=== PATIENT | female | born 1990 | race Caucasian/White ===

== ENCOUNTER 2016-10-26 16:33 | Emergency (ER) | payer OTHER ==
[~2016-10-26] VITALS: Ht 157.4 cm; Wt 41.7 kg
[~2016-10-26 16:33] MED LIST: BACTRIM DS 8001 TA1 PO; DARVOCET N 1001 TAB PO; KEFLEX500 MG PO; MOTRIN400 MG PO; MOTRIN800 MG PO; NKHM; PEPCID20 MG PO; PRENTAL 1 PLUS1 TAB PO; SEPTRA DS 800 M1 TAB PO; VICODIN 5/500 505 MG PO; XANAX1 MG PO
[2016-10-26 17:06] VITALS: BP 116/78
[2016-10-26 17:39] LABS: BILIRUBIN 1+ (NEGATIVE); BLOOD 3+ (NEGATIVE); CLARITY SL CLOUDY (CLEAR); COLOR YELLOW (YELLOW); GLUCOSE NEGATIVE (NEGATIVE); KETONE NEGATIVE (NEGATIVE); LEUKO ESTERASE NEGATIVE (NEGATIVE); NITRITE NEGATIVE (NEGATIVE); PH 6.5 (5.0-9.0)
[2016-10-26 17:50] LABS: BACTERIA TRACE; EPITHELIAL CELLS 0-2; RBC 31-40 rbc/hpf (0-2)
[2016-10-26 19:41] LABS: HEMATOCRIT 41.3 % (37.0-47.0); MEAN CELL VOLUME 89.2 fl (81.0-99.0); MEAN CORPUSCULAR HGB 30.2 pg (27.0-31.0); MEAN CORPUSCULAR HGB CONC 33.9 g/dl (33.0-37.0); MEAN PLATELET VOLUME 11.8 fl (9.6-12.3); PLATELET COUNT AUTOMATED 237 10*3/uL (130-400); RED BLOOD COUNT 4.63 10*6/uL (4.10-5.10); RED CELL DISTRI WIDTH 12.9 % (0-14.5); WHITE BLOOD COUNT 30.3 10*3/uL (4.8-10.8)
[2016-10-26 19:56] LABS: ALBUMIN 3.4 gm/dl (3.1-4.5); ALKALINE PHOSPHATASE 115 U/L (45-117); BUN 13 mg/dl (7-24); CHLORIDE 101 mmol/L (98-107); CREATININE 0.77 mg/dL (0.55-1.02); POTASSIUM 3.5 mmol/L (3.5-5.1); SGOT/AST 13 IU/L (3-35); SGPT/ALT 13 U/L (12-78); SODIUM 137 mmol/L (136-145)
[2016-10-26 19:58] LABS: BETA-HCG, QUANT < 1.0 mIU/mL (1-3)
[2016-10-26 19:59] LABS: TOTAL CELLS COUNTED 100 #CELLS
[2016-10-26 20:00] LABS: PLATELET SUFFICIENCY NORMAL (NORMAL)
[2016-10-26] MEDS ORDERED: DOXYCYCLINE100 M3 PO (21:55)
[2016-10-29 07:54] LABS: GONOCOCCUS BY NAA Positive (Negative)
== END 2016-10-26 23:06 | disposition home or self-care (01) ==
LOC: ED 16:33
PROVIDERS: Emergency Medicine; Student in an Organized Health Care Education/Training Program
DX: N73.0 Acute parametritis and pelvic cellulitis (principal); F17.200 Nicotine dependence, unspecified, uncomplicated

== ENCOUNTER 2016-12-30 23:47 | Emergency (ER) | payer OTHER ==
[~2016-12-30] VITALS: Ht 157.4 cm; Wt 43.1 kg
[~2016-12-30 23:47] MED LIST changes: +DOXYCYCLINE100 M3 PO
[2016-12-30 23:55] VITALS: BP 109/74
== END 2016-12-31 00:41 | disposition left against medical advice (07) ==
LOC: ED 23:47
DX: S01.91XA Laceration without foreign body of unspecified part of head, initial encounter (principal); F17.200 Nicotine dependence, unspecified, uncomplicated; W10.9XXA Fall (on) (from) unspecified stairs and steps, initial encounter; Y93.89 Activity, other specified; Y92.008 Other place in unspecified non-institutional (private) residence as the place of occurrence of the external cause; Y99.8 Other external cause status

== ENCOUNTER 2017-01-28 11:53 | Emergency (ER) | payer OTHER ==
[~2017-01-28] VITALS: Ht 157.4 cm; Wt 42.2 kg
[2017-01-28 11:58] VITALS: BP 100/60
[2017-01-28 12:50] LABS: BILIRUBIN NEGATIVE (NEGATIVE); BLOOD 2+ (NEGATIVE); CLARITY CLOUDY (CLEAR); COLOR YELLOW (YELLOW); GLUCOSE NEGATIVE (NEGATIVE); KETONE NEGATIVE (NEGATIVE); LEUKO ESTERASE 1+ (NEGATIVE); NITRITE NEGATIVE (NEGATIVE); SPECIFIC GRAVITY >= 1.030 (1.005-1.030); UROBILINOGEN 0.2 E.U./dl (0.2-1.0)
[2017-01-28 13:05] LABS: MUCOUS TRACE; RBC 16-20 rbc/hpf (0-2); WBC TNTC wbc/hpf (0-5)
[2017-01-28 13:08] LABS: URINE AMPHETAMINES < 1000 (1000ng/ml); URINE BARBITURATES < 200 (200ng/ml); URINE BENZODIAZEPINES > 200 (200ng/ml); URINE CANNABINOIDS (THC) > 50 (50ng/ml); URINE COCAINE > 300 (300ng/ml); URINE METHADONE < 300 (300ng/ml); URINE OPIATES < 300 (300ng/ml)
[2017-01-28 13:13] LABS: URINE PHENCYCLIDINE < 25 (25ng/ml)
[2017-01-28] MEDS ORDERED: SEPTDS PO (13:37)
[2017-01-28] MEDS ORDERED: PYRIDIUM200 M1 PO (13:37)
== END 2017-01-28 14:38 | disposition home or self-care (01) ==
LOC: ED 11:53
PROVIDERS: Emergency Medicine
DX: N34.2 Other urethritis (principal); A64 Unspecified sexually transmitted disease; A59.01 Trichomonal vulvovaginitis; F19.10 Other psychoactive substance abuse, uncomplicated; F17.210 Nicotine dependence, cigarettes, uncomplicated

== ENCOUNTER 2017-01-31 00:45 | Emergency (ER) | payer OTHER ==
[~2017-01-31] VITALS: Ht 160 cm; Wt 45.4 kg
[~2017-01-31 00:45] MED LIST changes: +PYRIDIUM200 M1 PO; +SEPTDS PO
[2017-01-31 01:42] LABS: BASO # 0.1 10*3/uL (0.0-0.1); BASO % 0.7 % (0.0-1.0); EOS # 0.6 10*3/uL (0.0-0.4); HEMATOCRIT 39.9 % (37.0-47.0); HEMOGLOBIN 13.3 g/dl (12.0-16.0); LYMPH # 2.9 10*3/uL (1.3-4.4); LYMPH % 29.6 % (27.0-41.0); MEAN CELL VOLUME 90.7 fl (81.0-99.0); MEAN CORPUSCULAR HGB 30.2 pg (27.0-31.0); MEAN CORPUSCULAR HGB CONC 33.3 g/dl (33.0-37.0); MEAN PLATELET VOLUME 11.8 fl (9.6-12.3); MONO # 0.5 10*3/uL (0.1-1.0); MONO % 4.6 % (3.0-9.0); NEUT # 5.7 10*3/uL (2.3-7.9); PLATELET COUNT AUTOMATED 211 10*3/uL (130-400); RED CELL DISTRI WIDTH 13.5 % (0-14.5); WHITE BLOOD COUNT 9.7 10*3/uL (4.8-10.8)
[2017-01-31 01:58] LABS: ACETAMINOPHEN (TYLENOL) < 2.0 ug/ml (10-30); ALBUMIN 4.1 gm/dl (3.1-4.5); ALKALINE PHOSPHATASE 81 U/L (45-117); BUN 14 mg/dl (7-24); CHLORIDE 113 mmol/L (98-107); CREATININE 0.94 mg/dL (0.55-1.02); POTASSIUM 3.4 mmol/L (3.5-5.1); SGOT/AST 19 IU/L (3-35); SGPT/ALT 20 U/L (12-78); SODIUM 147 mmol/L (136-145); TOTAL PROTEIN 7.6 gm/dL (6.4-8.2)
[2017-01-31 02:03] LABS: BETA-HCG, QUANT < 1.0 mIU/mL (1-3)
[2017-01-31 05:38] VITALS: BP 94/54
[2017-01-31 06:23] LABS: BILIRUBIN NEGATIVE (NEGATIVE); BLOOD NEGATIVE (NEGATIVE); CLARITY CLEAR (CLEAR); COLOR YELLOW (YELLOW); GLUCOSE NEGATIVE (NEGATIVE); KETONE NEGATIVE (NEGATIVE); LEUKO ESTERASE TRACE (NEGATIVE); NITRITE NEGATIVE (NEGATIVE); PH 5.5 (5.0-9.0); SPECIFIC GRAVITY 1.025 (1.005-1.030); UROBILINOGEN 0.2 E.U./dl (0.2-1.0)
[2017-01-31 06:34] LABS: URINE AMPHETAMINES < 1000 (1000ng/ml); URINE BARBITURATES < 200 (200ng/ml); URINE BENZODIAZEPINES > 200 (200ng/ml); URINE CANNABINOIDS (THC) > 50 (50ng/ml); URINE COCAINE > 300 (300ng/ml); URINE METHADONE < 300 (300ng/ml); URINE OPIATES < 300 (300ng/ml)
[2017-01-31 06:36] LABS: URINE PHENCYCLIDINE < 25 (25ng/ml)
[2017-01-31 06:51] LABS: BACTERIA 1+; MUCOUS 2+; WBC 16-20 wbc/hpf (0-5)
== END 2017-01-31 06:56 | disposition home or self-care (01) ==
LOC: ED 00:45
PROVIDERS: Student in an Organized Health Care Education/Training Program
DX: F10.129 Alcohol abuse with intoxication, unspecified (principal); F19.10 Other psychoactive substance abuse, uncomplicated; Z88.8 Allergy status to other drugs, medicaments and biological substances

== ENCOUNTER 2017-05-30 12:10 | Emergency (ER) | payer OTHER ==
[~2017-05-30] VITALS: Ht 157.4 cm; Wt 41.7 kg
[2017-05-30 12:16] VITALS: BP 95/89
[2017-05-30 12:49] LABS: BASO % 0.6 % (0.0-1.0); EOS # 0.3 10*3/uL (0.0-0.4); EOS % 5.6 % (1.0-4.0); HEMATOCRIT 37.3 % (37.0-47.0); HEMOGLOBIN 12.1 g/dl (12.0-16.0); LYMPH # 1.8 10*3/uL (1.3-4.4); LYMPH % 37.8 % (27.0-41.0); MEAN CELL VOLUME 95.2 fl (81.0-99.0); MEAN CORPUSCULAR HGB 30.9 pg (27.0-31.0); MEAN CORPUSCULAR HGB CONC 32.4 g/dl (33.0-37.0); MEAN PLATELET VOLUME 11.2 fl (9.6-12.3); MONO # 0.4 10*3/uL (0.1-1.0); MONO % 8.8 % (3.0-9.0); NEUT # 2.2 10*3/uL (2.3-7.9); PLATELET COUNT AUTOMATED 194 10*3/uL (130-400); RED BLOOD COUNT 3.92 10*6/uL (4.10-5.10); RED CELL DISTRI WIDTH 13.5 % (0-14.5); WHITE BLOOD COUNT 4.7 10*3/uL (4.8-10.8)
[2017-05-30 13:10] LABS: ALBUMIN 3.7 gm/dl (3.1-4.5); ALKALINE PHOSPHATASE 75 U/L (45-117); BUN 11 mg/dl (7-24); CHLORIDE 104 mmol/L (98-107); SGOT/AST 21 IU/L (3-35); SGPT/ALT 18 U/L (12-78); SODIUM 141 mmol/L (136-145); TOTAL PROTEIN 7.2 gm/dL (6.4-8.2)
[2017-05-30 13:12] LABS: ETHYL ALCOHOL < 3.0 mg/dl (<3)
[2017-05-30 13:18] LABS: THYROID STIM HORMONE (HS) 0.172 uIU/ml (0.358-4.75)
[2017-05-30 13:23] LABS: BILIRUBIN NEGATIVE (NEGATIVE); BLOOD NEGATIVE (NEGATIVE); CLARITY CLEAR (CLEAR); COLOR YELLOW (YELLOW); GLUCOSE NEGATIVE (NEGATIVE); KETONE NEGATIVE (NEGATIVE); LEUKO ESTERASE NEGATIVE (NEGATIVE); NITRITE POSITIVE (NEGATIVE); SPECIFIC GRAVITY >= 1.030 (1.005-1.030); UROBILINOGEN 0.2 E.U./dl (0.2-1.0)
[2017-05-30 13:32] LABS: URINE AMPHETAMINES < 1000 (1000ng/ml); URINE BARBITURATES > 200 (200ng/ml); URINE BENZODIAZEPINES > 200 (200ng/ml); URINE CANNABINOIDS (THC) > 50 (50ng/ml); URINE COCAINE > 300 (300ng/ml); URINE METHADONE < 300 (300ng/ml); URINE OPIATES < 300 (300ng/ml)
[2017-05-30 13:33] LABS: URINE PHENCYCLIDINE < 25 (25ng/ml)
[2017-05-30 13:42] LABS: BACTERIA 4+; EPITHELIAL CELLS 0-2; WBC 21-30 wbc/hpf (0-5)
== END 2017-05-30 14:23 | disposition admitted as inpatient to this hospital (09) ==
LOC: ED 12:10 → EDHOLD 13:06 → 5E 13:55 → EDHOLD 13:55 → 5E 13:55 → ED 14:23
PROVIDERS: Emergency Medicine; Family Medicine
DX: F11.10 Opioid abuse, uncomplicated (principal); F19.10 Other psychoactive substance abuse, uncomplicated; F17.200 Nicotine dependence, unspecified, uncomplicated

== ENCOUNTER 2017-06-05 13:06 | Emergency (ER) | payer OTHER ==
[~2017-06-05] VITALS: Ht 157.4 cm; Wt 45.4 kg
[2017-06-05 13:13] VITALS: BP 112/78
[2017-06-05 13:58] LABS: BILIRUBIN NEGATIVE (NEGATIVE); BLOOD NEGATIVE (NEGATIVE); CLARITY CLOUDY (CLEAR); COLOR YELLOW (YELLOW); GLUCOSE NEGATIVE (NEGATIVE); KETONE NEGATIVE (NEGATIVE); LEUKO ESTERASE TRACE (NEGATIVE); NITRITE POSITIVE (NEGATIVE); UROBILINOGEN 0.2 E.U./dl (0.2-1.0)
[2017-06-05 14:08] LABS: BACTERIA 4+; WBC 41-50 wbc/hpf (0-5)
[2017-06-05] MEDS ORDERED: MACROBID100 M1 PO (14:22)
[2017-06-05] MEDS ORDERED: DIFLUCAN150 MG PO (14:22)
== END 2017-06-05 14:27 | disposition home or self-care (01) ==
LOC: ED 13:06
PROVIDERS: Nurse Practitioner Family
DX: N39.0 Urinary tract infection, site not specified (principal); R30.0 Dysuria

== ENCOUNTER → 2017-10-19 | Outpatient (CLI) | payer OTHER ==
[~2017-10-19] MED LIST changes: +DIFLUCAN150 MG PO; +MACROBID100 M1 PO
== END | disposition home or self-care (01) ==
LOC: US 15:00
DX: Z34.81 Encounter for supervision of other normal pregnancy, first trimester (principal); Z3A.11 11 weeks gestation of pregnancy

== ENCOUNTER 2018-09-01 15:55 | Emergency (ER) | payer OTHER ==
[~2018-09-01] VITALS: Ht 157.4 cm; Wt 44.5 kg
[2018-09-01 15:57] VITALS: BP 141/69
[2018-09-01 16:20] LABS: BILIRUBIN NEGATIVE (NEGATIVE); BLOOD NEGATIVE (NEGATIVE); CLARITY SL CLOUDY (CLEAR); COLOR YELLOW (YELLOW); GLUCOSE NEGATIVE (NEGATIVE); KETONE 2+ (NEGATIVE); LEUKO ESTERASE 1+ (NEGATIVE); NITRITE POSITIVE (NEGATIVE); SPECIFIC GRAVITY >= 1.030 (1.005-1.030); UROBILINOGEN 0.2 E.U./dl (0.2-1.0)
[2018-09-01 16:36] LABS: WBC TNTC wbc/hpf (0-5)
[2018-09-01 16:37] LABS: BACTERIA 4+; MUCOUS 3+
[2018-09-01] MEDS ORDERED: KEFLEX500 M1 PO (16:40)
[2018-09-01] MEDS ORDERED: Motrin,Rufen800 MG PO (16:40)
== END 2018-09-01 17:05 | disposition home or self-care (01) ==
LOC: ED 15:55
PROVIDERS: Physician Assistant
DX: N39.0 Urinary tract infection, site not specified (principal); L02.411 Cutaneous abscess of right axilla; F17.200 Nicotine dependence, unspecified, uncomplicated; Z91.048 Other nonmedicinal substance allergy status

== ENCOUNTER 2018-09-03 18:43 | Emergency (ER) | payer OTHER ==
[~2018-09-03] VITALS: Ht 157.4 cm; Wt 43.1 kg
[~2018-09-03 18:43] MED LIST changes: +KEFLEX500 M1 PO; +Motrin,Rufen800 MG PO
[2018-09-03 18:44] VITALS: BP 113/76
[2018-09-03] MEDS ORDERED: SEPTDS PO (19:08)
[2018-09-03] MEDS ORDERED: PYRIDIUM100 MG PO (19:08)
[2018-09-03 19:10] LABS: BILIRUBIN 2+ (NEGATIVE); BLOOD 2+ (NEGATIVE); CLARITY SL CLOUDY (CLEAR); COLOR YELLOW (YELLOW); GLUCOSE NEGATIVE (NEGATIVE); KETONE 1+ (NEGATIVE); LEUKO ESTERASE 2+ (NEGATIVE); NITRITE NEGATIVE (NEGATIVE); SPECIFIC GRAVITY >= 1.030 (1.005-1.030); UROBILINOGEN 0.2 E.U./dl (0.2-1.0)
[2018-09-03 19:19] LABS: WBC TNTC wbc/hpf (0-5)
[2018-09-03 19:20] LABS: BACTERIA 2+; RBC 21-30 rbc/hpf (0-2)
== END 2018-09-03 19:24 | disposition home or self-care (01) ==
LOC: ED 18:43
PROVIDERS: Nurse Practitioner Family
DX: N39.0 Urinary tract infection, site not specified (principal); L02.411 Cutaneous abscess of right axilla; Z91.048 Other nonmedicinal substance allergy status; Z79.899 Other long term (current) drug therapy; Z79.2 Long term (current) use of antibiotics

== ENCOUNTER 2018-10-15 19:08 | Emergency (ER) | payer OTHER ==
[~2018-10-15] VITALS: Ht 157.4 cm; Wt 44.5 kg
[~2018-10-15 19:08] MED LIST changes: +PYRIDIUM100 MG PO
[2018-10-15 19:11] VITALS: BP 159/85
[2018-10-15] MEDS ORDERED: ZYRTEC-D TABLE1 EACH PO (20:13)
[2018-10-15] MEDS ORDERED: AMOXICILLIN500 M2 PO (20:13)
== END 2018-10-15 20:55 | disposition home or self-care (01) ==
LOC: ED 19:08
DX: J01.90 Acute sinusitis, unspecified (principal); J20.9 Acute bronchitis, unspecified; Z91.048 Other nonmedicinal substance allergy status; Z79.899 Other long term (current) drug therapy; Z79.2 Long term (current) use of antibiotics

== ENCOUNTER 2018-12-02 18:38 | Emergency (ER) | payer OTHER ==
[~2018-12-02] VITALS: Ht 157.4 cm; Wt 45.4 kg
[~2018-12-02 18:38] MED LIST changes: +AMOXICILLIN500 M2 PO; +ZYRTEC-D TABLE1 EACH PO
[2018-12-02 18:40] VITALS: BP 104/65
[2018-12-02 19:03] LABS: BILIRUBIN NEGATIVE (NEGATIVE); BLOOD NEGATIVE (NEGATIVE); CLARITY CLEAR (CLEAR); COLOR YELLOW (YELLOW); GLUCOSE NEGATIVE (NEGATIVE); KETONE NEGATIVE (NEGATIVE); LEUKO ESTERASE 1+ (NEGATIVE); NITRITE NEGATIVE (NEGATIVE); SPECIFIC GRAVITY 1.025 (1.005-1.030); UROBILINOGEN 0.2 E.U./dl (0.2-1.0)
[2018-12-02 19:08] LABS: BACTERIA TRACE; WBC 51-100 wbc/hpf (0-5)
[2018-12-02] MEDS ORDERED: CEPHALEXIN500 M1 PO (19:38)
== END 2018-12-02 19:33 | disposition home or self-care (01) ==
LOC: ED 18:38
PROVIDERS: Nurse Practitioner Family
DX: N39.0 Urinary tract infection, site not specified (principal); J02.0 Streptococcal pharyngitis; R59.0 Localized enlarged lymph nodes; Z91.048 Other nonmedicinal substance allergy status; Z79.899 Other long term (current) drug therapy; Z79.2 Long term (current) use of antibiotics

== ENCOUNTER 2019-05-26 09:19 | Emergency (ER) | payer OTHER ==
[~2019-05-26] VITALS: Ht 157.4 cm; Wt 45.4 kg
[~2019-05-26 09:19] MED LIST changes: +CEPHALEXIN500 M1 PO
[2019-05-26 09:26] VITALS: BP 126/85
== END 2019-05-26 09:41 | disposition left against medical advice (07) ==
LOC: ED 09:19
DX: T40.601A Poisoning by unspecified narcotics, accidental (unintentional), initial encounter (principal); R40.20 Unspecified coma; R06.81 Apnea, not elsewhere classified; R23.0 Cyanosis; Z91.048 Other nonmedicinal substance allergy status; Z79.899 Other long term (current) drug therapy; Z79.2 Long term (current) use of antibiotics; Z53.29 Procedure and treatment not carried out because of patient's decision for other reasons; Y92.481 Parking lot as the place of occurrence of the external cause

== ENCOUNTER 2019-06-09 02:55 | Emergency (ER) | payer OTHER ==
[~2019-06-09] VITALS: Ht 162.5 cm; Wt 49.9 kg
[2019-06-09 02:56] VITALS: BP 107/61
== END 2019-06-09 04:19 | disposition home or self-care (01) ==
LOC: ED 02:55
DX: S84.92XA Injury of unspecified nerve at lower leg level, left leg, initial encounter (principal); F11.90 Opioid use, unspecified, uncomplicated; F17.200 Nicotine dependence, unspecified, uncomplicated; Z91.048 Other nonmedicinal substance allergy status; Z79.899 Other long term (current) drug therapy; Z79.2 Long term (current) use of antibiotics; W49.09XA Other specified item causing external constriction, initial encounter; Y93.89 Activity, other specified; Y92.098 Other place in other non-institutional residence as the place of occurrence of the external cause; Y99.8 Other external cause status

== ENCOUNTER 2019-09-10 14:40 | Emergency (ER) | payer OTHER ==
[~2019-09-10] VITALS: Ht 157.4 cm; Wt 46.3 kg
[2019-09-10 14:49] VITALS: BP 138/49
== END 2019-09-10 15:40 | disposition left against medical advice (07) ==
LOC: ED 14:40
DX: F19.90 Other psychoactive substance use, unspecified, uncomplicated (principal); Z88.8 Allergy status to other drugs, medicaments and biological substances; Z79.899 Other long term (current) drug therapy

== ENCOUNTER 2019-11-09 17:19 | Emergency (ER) | payer OTHER ==
[~2019-11-09] VITALS: Ht 157.4 cm; Wt 45.4 kg
[2019-11-09 17:25] VITALS: BP 117/74
[2019-11-09 18:06] LABS: BILIRUBIN Negative (Negative); BLOOD Negative (Negative); CLARITY Clear (Clear); COLOR Yellow (Yellow); GLUCOSE Negative (Negative); KETONE Negative (Negative); LEUKO ESTERASE Negative (Negative); NITRITE Negative (Negative); PH 5.5 (4.5-8.0); SPECIFIC GRAVITY >= 1.030 (1.001-1.030)
[2019-11-09 18:11] LABS: BASO % 0.2 % (0.0-1.0); EOS % 0.4 % (1.0-4.0); HEMATOCRIT 35.8 % (37.0-47.0); LYMPH # 1.6 10*3/uL (1.3-4.4); LYMPH % 33.3 % (27.0-41.0); MEAN CELL VOLUME 88.2 fl (81.0-99.0); MEAN CORPUSCULAR HGB 28.1 pg (27.0-31.0); MEAN CORPUSCULAR HGB CONC 31.8 g/dl (33.0-37.0); MEAN PLATELET VOLUME 10.9 fl (9.6-12.3); MONO # 0.3 10*3/uL (0.1-1.0); NEUT # 2.9 10*3/uL (2.3-7.9); NEUT % 58.9 % (47.0-73.0); PLATELET COUNT AUTOMATED 230 10*3/uL (130-400); RED BLOOD COUNT 4.06 10*6/uL (4.10-5.10); RED CELL DISTRI WIDTH 13.1 % (0-14.5); WHITE BLOOD COUNT 4.9 10*3/uL (4.8-10.8)
[2019-11-09 18:19] LABS: URINE AMPHETAMINES > 1000 (1000ng/ml); URINE BARBITURATES < 200 (200ng/ml); URINE BENZODIAZEPINES > 200 (200ng/ml); URINE CANNABINOIDS (THC) > 50 (50ng/ml); URINE COCAINE < 300 (300ng/ml); URINE METHADONE < 300 (300ng/ml); URINE OPIATES > 300 (300ng/ml)
[2019-11-09 18:21] LABS: URINE PHENCYCLIDINE < 25 (25ng/ml)
[2019-11-09 18:32] LABS: ALBUMIN 3.4 gm/dl (3.1-4.5); ALKALINE PHOSPHATASE 120 U/L (45-117); BUN 11 mg/dl (7-24); CHLORIDE 107 mmol/L (98-107); CREATININE 0.69 mg/dL (0.55-1.02); POTASSIUM 3.8 mmol/L (3.5-5.1); SGOT/AST 44 IU/L (3-35); SGPT/ALT 50 U/L (12-78); SODIUM 137 mmol/L (136-145); TOTAL PROTEIN 7.2 gm/dL (6.4-8.2)
[2019-11-09 18:35] LABS: MUCOUS 1+
[2019-11-09 18:36] LABS: BETA-HCG, QUANT < 1.0 mIU/mL (1-3)
== END 2019-11-09 19:30 | disposition left against medical advice (07) ==
LOC: ED 17:19 → EDHOLD 17:59 → 5E 18:46 → ED 19:30
PROVIDERS: Emergency Medicine
DX: F11.23 Opioid dependence with withdrawal (principal)

== ENCOUNTER 2021-06-26 21:13 | Emergency (ER) | payer OTHER ==
[~2021-06-26] VITALS: Ht 157.4 cm; Wt 47.6 kg
[2021-06-26 21:18] VITALS: BP 138/77
[2021-06-26 22:24] LABS: BILIRUBIN Negative (Negative); BLOOD Negative (Negative); CLARITY Cloudy (Clear); COLOR Yellow (Yellow); GLUCOSE Negative (Negative); KETONE Negative (Negative); LEUKO ESTERASE 1+ (Negative); NITRITE Negative (Negative); SPECIFIC GRAVITY 1.025 (1.001-1.030)
[2021-06-26 22:32] LABS: URINE AMPHETAMINES > 1000 (1000ng/ml); URINE BARBITURATES < 200 (200ng/ml); URINE BENZODIAZEPINES < 200 (200ng/ml); URINE CANNABINOIDS (THC) > 50 (50ng/ml); URINE COCAINE < 300 (300ng/ml); URINE METHADONE < 300 (300ng/ml); URINE OPIATES < 300 (300ng/ml)
[2021-06-26 22:34] LABS: URINE PHENCYCLIDINE < 25 (25ng/ml)
[2021-06-26 22:35] LABS: BASO # 0.1 10*3/uL (0.0-0.1); BASO % 0.6 % (0.0-1.0); EOS % 0.2 % (1.0-4.0); HEMATOCRIT 41.7 % (37.0-47.0); LYMPH # 2.3 10*3/uL (1.3-4.4); MEAN CELL VOLUME 86.2 fl (81.0-99.0); MEAN CORPUSCULAR HGB 29.5 pg (27.0-31.0); MEAN CORPUSCULAR HGB CONC 34.3 g/dl (33.0-37.0); MEAN PLATELET VOLUME 11.5 fl (9.6-12.3); MONO # 0.6 10*3/uL (0.1-1.0); MONO % 3.9 % (3.0-9.0); NEUT # 11.4 10*3/uL (2.3-7.9); PLATELET COUNT AUTOMATED 268 10*3/uL (130-400); RED BLOOD COUNT 4.84 10*6/uL (4.10-5.10); RED CELL DISTRI WIDTH 13.2 % (0-14.5); WHITE BLOOD COUNT 14.5 10*3/uL (4.8-10.8)
[2021-06-26 22:35] LABS: EPITHELIAL CELLS TNTC; MUCOUS 1+
[2021-06-26 22:50] LABS: ALKALINE PHOSPHATASE 71 U/L (45-117); BUN 9 mg/dl (7-24); CHLORIDE 108 mmol/L (98-107); CREATININE 0.87 mg/dL (0.55-1.02); LIPASE 140 U/L (73-393); POTASSIUM 3.6 mmol/L (3.5-5.1); SGOT/AST 10 IU/L (3-35); SGPT/ALT 18 U/L (12-78); SODIUM 138 mmol/L (136-145); TOTAL PROTEIN 8.6 gm/dL (6.4-8.2)
== END 2021-06-26 23:07 | disposition home or self-care (01) ==
LOC: ED 21:13
PROVIDERS: Physician Assistant
DX: N39.0 Urinary tract infection, site not specified (principal); Z20.2 Contact with and (suspected) exposure to infections with a predominantly sexual mode of transmission